=== PATIENT | female | born 1965 | race Caucasian/White ===

== ENCOUNTER 2018-05-29 06:25 | Inpatient (IN) | payer BC ==
[2018-05-26 11:19] LABS: BILIRUBIN,URINE NEGATIVE (NEGATIVE); BLOOD, URINE NEGATIVE (NEGATIVE); CLARITY/URINE CLEAR (CLEAR); COLOR,URINE YELLOW (YELLOW); GLUCOSE,URINE NEGATIVE (NEGATIVE); KETONES,URINE NEGATIVE (NEGATIVE); LEUKOCYTE ESTERASE ,URINE NEGATIVE (NEGATIVE); NITRITE, URINE NEGATIVE (NEGATIVE); PROTEIN URINE NEGATIVE (NEGATIVE); UROBILINOGEN,URINE 0.2 (0.2-1.0)
[2018-05-26 11:27] LABS: BASOPHILS # (AUTO) 0.1 K/uL (0.0-0.2); BASOPHILS % (AUTO) 0.6 % (0.0-2.0); EOSINOPHILS # (AUTO) 0.4 K/uL (0.0-0.4); EOSINOPHILS % (AUTO) 4.4 % (0.0-4.0); HEMOGLOBIN 14.7 g/dL (12.0-16.0); LYMPHOCYTES # (AUTO) 2.8 K/uL (1.0-5.5); LYMPHOCYTES % (AUTO) 32.5 % (20.5-51.5); MEAN CORPUSCULAR HEMOGLOBIN 32 pg (27-31); MEAN CORPUSCULAR HGB CONC 34 % (32-36); MEAN CORPUSCULAR VOLUME 93 fL (79.0-98.0); MONOCYTES # (AUTO) 0.5 K/uL (0.0-1.0); MONOCYTES % (AUTO) 5.2 % (1.7-9.3); NEUTROPHILS % (AUTO) 57.3 % (40.0-70.0); PLATELET COUNT (AUTO) 304 K/uL (130-430); RED BLOOD CELL COUNT(AUTO) 4.65 MIL/uL (4.2-6.2); RED CELL DISTRIBUTION WIDTH 12.8 % (9.0-15.0); WHITE BLOOD COUNT (AUTO) 8.8 K/uL (4.8-10.8)
[2018-05-26 11:28] LABS: CALCIUM 9.6 mg/dL (8.4-11.0); CREATININE 0.72 mg/dL (0.55-1.30); POTASSIUM 3.9 mmol/L (3.5-5.1)
[~2018-05-29] VITALS: Ht 162.6 cm; Wt 93.4 kg
[2018-05-29] MEDS ORDERED: CEFAZOLIN SOD 1 GM/ ISO 50 ML PREMIX IV ONE (07:00)
[2018-05-29] MEDS ORDERED: PREG75CA PO (07:49)
[2018-05-29] MEDS ORDERED: LEVO25TA7 PO (08:08)
[2018-05-29] MEDS ORDERED: AMLO5TAB4 PO (08:08)
[2018-05-29] MEDS ORDERED: OXYC-158 PO (08:08)
[2018-05-29] MEDS ORDERED: MELO15TA13 PO (08:08)
[2018-05-29] MEDS ORDERED: LAM250 GT (08:08)
[2018-05-29] MEDS ORDERED: LOSA100T3 PO (08:08)
[2018-05-29] MEDS ORDERED: fentaNYL CITRATE 250 MCG/5 ML AMP IV ONE (08:30)
[2018-05-29] MEDS ORDERED: SUCCINYLCHOLINE CHLORIDE 20 MG/ML(QUELICIN) IVP ONE (08:30)
[2018-05-29] MEDS ORDERED: LR 1,000 ML IV.SOLN IV ONE (08:30)
[2018-05-29] MEDS ORDERED: MIDAZOLAM HCL 5 MG/5 ML VIAL IVP ONE (08:30)
[2018-05-29] MEDS ORDERED: SUGAMMADEX SODIUM 200 MG/2 ML VIAL IV ONE (08:30)
[2018-05-29] MEDS ORDERED: fentaNYL CITRATE/PF 100 MCG/2 ML AMP IVP ONE (08:30)
[2018-05-29] MEDS ORDERED: PROPOFOL 200MG/ 20ML VIAL (DIPRIVAN) IV ONE (08:30)
[2018-05-29] MEDS ORDERED: NS 1000 ML IV.SOLN IV ONE (08:30)
[2018-05-29] MEDS ORDERED: SEVOFLURANE 15 MIN GAS INH ONE (08:30)
[2018-05-29] MEDS ORDERED: ONDANSETRON HCL 4 MG/2 ML VIAL IVP ONE (08:30)
[2018-05-29] MEDS ORDERED: LR 1,000 ML IV SCH (09:55)
[2018-05-29] MEDS ORDERED: METOCLOPRAMIDE HCL 10 MG/2 ML VIAL IVP PRN (10:00)
[2018-05-29] MEDS ORDERED: HYDROmorphone 1 MG INJ. 1 MG/ML AMPUL IVP PRN ×2 (10:00)
[2018-05-29] MEDS ORDERED: HYDROmorphone 2 MG/ML VIAL IVP PRN (10:00)
[2018-05-29] MEDS ORDERED: ONDANSETRON HCL 4 MG/2 ML VIAL IVP PRN (10:30)
[2018-05-29] MEDS ORDERED: IBUPROFEN 800 MG TABLET PO PRN ×2 (10:30)
[2018-05-29] MEDS ORDERED: OXYCODONE/ACETAMINOPHEN 5-325 TABLET PO PRN ×3 (10:30)
[2018-05-29] MEDS: LR 1,000 ML IV SCH ×2 (10:31→17:57)
[2018-05-29] MEDS ORDERED: HYDROmorphone 2 MG/ML VIAL ONE ×2 (10:32→10:46)
[2018-05-29 11:30] VITALS: BP_SYST 178
[2018-05-29] MEDS: OXYCODONE/ACETAMINOPHEN 5-325 TABLET PO PRN ×2 (11:47→20:48)
[2018-05-29] MEDS ORDERED: PROMETHAZINE HCL 25 MG/ML AMP IM PRN (15:45)
[2018-05-29] MEDS ORDERED: MEPERIDINE HCL/PF 50 MG/ML AMP IM PRN (15:45)
[2018-05-29 15:56] VITALS: BP_SYST 149
[2018-05-29 20:45] VITALS: BP_SYST 122
[2018-05-29] MEDS: PREGABALIN 75 MG CAPSULE (LYRICA) PO SCH (20:45)
[2018-05-29] MEDS ORDERED: SENNOSIDES/DOCUSATE SODIUM 1 TAB TABLET(SENOKOT-S) PO PRN ×2 (21:00)
[2018-05-29] MEDS ORDERED: TEMAZEPAM 15 MG CAPSULE PO PRN (21:00)
[2018-05-29 23:00] VITALS: BP_SYST 122
[2018-05-30] MEDS: LR 1,000 ML IV SCH (01:23)
[2018-05-30] MEDS: SIMETHICONE 80 MG TAB.CHEW PO PRN ×2 (02:50→08:36)
[2018-05-30] MEDS ORDERED: LEVOTHYROXINE SODIUM 0.025 MG TABLET PO SCH (07:00)
[2018-05-30] MEDS: OXYCODONE/ACETAMINOPHEN 5-325 TABLET PO PRN (07:58)
[2018-05-30 08:00] VITALS: BP_SYST 130
[2018-05-30] MEDS: PREGABALIN 75 MG CAPSULE (LYRICA) PO SCH (08:37)
[2018-05-30 08:57] LABS: HEMATOCRIT 28.5 % (36-48); HEMOGLOBIN 9.3 g/dL (12.0-16.0)
[2018-05-30] MEDS ORDERED: LOSARTAN POTASSIUM 50 MG TABLET (COZAAR) PO SCH (09:00)
[2018-05-30] MEDS ORDERED: amLODIPine BESYLATE 5 MG TABLET PO SCH (09:00)
[2018-05-30 11:17] VITALS: BP_SYST 117
[2018-05-30 11:55] VITALS: BP_SYST 108
== END 2018-05-30 14:49 | disposition home or self-care (01) | DRG 743 ==
LOC: SDS 06:25 → SMU 06:26 → SDS 11:25
PROVIDERS: ADMIT Obstetrics & Gynecology; ATTEND Obstetrics & Gynecology
PROC: 0UT20ZZ Resection of Bilateral Ovaries, Open Approach (ICD-10-PCS; 2018-05-29)
PROC: 0UDB8ZZ Extraction of Endometrium, Via Natural or Artificial Opening Endoscopic (ICD-10-PCS; 2018-05-29)
PROC: 0UT70ZZ Resection of Bilateral Fallopian Tubes, Open Approach (ICD-10-PCS; principal; 2018-05-29 07:30)
DX: N83.8 Other noninflammatory disorders of ovary, fallopian tube and broad ligament (principal); I10 Essential (primary) hypertension; N83.202 Unspecified ovarian cyst, left side; M19.90 Unspecified osteoarthritis, unspecified site; M79.7 Fibromyalgia; Z87.81 Personal history of (healed) traumatic fracture; Z87.891 Personal history of nicotine dependence; Z79.899 Other long term (current) drug therapy; Z82.49 Family history of ischemic heart disease and other diseases of the circulatory system; Z82.61 Family history of arthritis; Z83.3 Family history of diabetes mellitus; Z83.49 Family history of other endocrine, nutritional and metabolic diseases
CPT/HCPCS: 36415; 80048; 81003; 84703; 85018-TC; 85025; 86886; 86900; 86901; 87081; 88304; 88305; C9399; J0330; J0690; J1170; J2175; J2250; J2405; J2550; J2704; J3010; J7030; J7120

== ENCOUNTER 2018-06-02 13:38 | Inpatient (IN) | payer BC ==
[~2018-06-02] VITALS: Ht 162.6 cm; Wt 96.2 kg
[~2018-06-02 13:38] MED LIST: AMLO5TAB4 PO; LAM250 GT; LEVO25TA7 PO; LOSA100T3 PO; MELO15TA13 PO; OXYC-158 PO; PREG75CA PO
[2018-06-02 13:44] VITALS: BP_SYST 152
[2018-06-02 14:56] LABS: BASOPHILS % (AUTO) 0.3 % (0.0-2.0); EOSINOPHILS # (AUTO) 0.4 K/uL (0.0-0.4); EOSINOPHILS % (AUTO) 4.3 % (0.0-4.0); HEMATOCRIT 23.2 % (36-48); LYMPHOCYTES # (AUTO) 2.2 K/uL (1.0-5.5); LYMPHOCYTES % (AUTO) 23.5 % (20.5-51.5); MEAN CORPUSCULAR HEMOGLOBIN 31 pg (27-31); MEAN CORPUSCULAR HGB CONC 33 % (32-36); MEAN CORPUSCULAR VOLUME 96 fL (79.0-98.0); MONOCYTES # (AUTO) 0.7 K/uL (0.0-1.0); MONOCYTES % (AUTO) 7.2 % (1.7-9.3); NEUTROPHILS # (AUTO) 6.1 K/uL (1.8-7.7); NEUTROPHILS % (AUTO) 64.7 % (40.0-70.0); PLATELET COUNT (AUTO) 325 K/uL (130-430); RED BLOOD CELL COUNT(AUTO) 2.42 MIL/uL (4.2-6.2); RED CELL DISTRIBUTION WIDTH 12.4 % (9.0-15.0); WHITE BLOOD COUNT (AUTO) 9.4 K/uL (4.8-10.8)
[2018-06-02] MEDS ORDERED: MORPHINE 2 MG/ML INJ. SYRINGE IVP ONE (15:00)
[2018-06-02 15:01] LABS: HEMOGLOBIN 7.6 g/dL (12.0-16.0)
[2018-06-02 15:04] LABS: CALCIUM 9.1 mg/dL (8.4-11.0); CREATININE 0.73 mg/dL (0.55-1.30); POTASSIUM 3.4 mmol/L (3.5-5.1)
[2018-06-02 15:07] LABS: INR 0.9 (0.8-1.2); PROTHROMBIN TIME 9.6 SECS (9.5-12.5)
[2018-06-02 15:08] LABS: ALBUMIN 3.1 g/dL (3.4-4.8); TOTAL BILIRUBIN 0.7 mg/dL (0.0-1.0)
[2018-06-02] MEDS ORDERED: IOHEXOL 100 ML IV ONE (15:23)
[2018-06-02 15:25] LABS: BILIRUBIN,URINE NEGATIVE (NEGATIVE); BLOOD, URINE TRACE (NEGATIVE); CLARITY/URINE CLEAR (CLEAR); COLOR,URINE YELLOW (YELLOW); GLUCOSE,URINE NEGATIVE (NEGATIVE); KETONES,URINE NEGATIVE (NEGATIVE); LEUKOCYTE ESTERASE ,URINE NEGATIVE (NEGATIVE); NITRITE, URINE NEGATIVE (NEGATIVE); PH,URINE 7.5 (5.0-8.0); PROTEIN URINE NEGATIVE (NEGATIVE); UROBILINOGEN,URINE 0.2 (0.2-1.0)
[2018-06-02 15:29] LABS: BACTERIA,URINE FEW /HPF (None Seen); RBC,URINE 0-3 /HPF (0-3); WBC,URINE 0-3 /HPF (0-3)
[2018-06-02] MEDS ORDERED: PREG20SO PO (17:05)
[2018-06-02] MEDS ORDERED: TIMO5DRO35 OP (17:05)
[2018-06-02] MEDS ORDERED: LATA2.5D2 OP (17:05)
[2018-06-02] MEDS ORDERED: NACL 0.9% 1,000 ML IV ONE (17:45)
[2018-06-02 18:07] VITALS: BP_SYST 157
[2018-06-02 19:15] VITALS: BP_SYST 129
[2018-06-02] MEDS: MORPHINE 2 MG/ML INJ. SYRINGE IVP PRN ×2 (19:27→23:16)
[2018-06-02] MEDS ORDERED: MORPHINE 2 MG/ML INJ. SYRINGE ONE (19:29)
[2018-06-03] MEDS ORDERED: MORPHINE 2 MG/ML INJ. SYRINGE IVP PRN (03:00)
[2018-06-03] MEDS ORDERED: ALBUTEROL SULFATE 0.083% 2.5 MG/3 ML VIAL.NEB INH PRN (03:00)
[2018-06-03] MEDS ORDERED: cefTRIAXone 1 GM IVPB PREMIX 50 ML IV ONE (03:22)
[2018-06-03] MEDS ORDERED: cefTRIAXone 1 GM IVPB PREMIX 50 ML IV SCH (04:00)
[2018-06-03 04:17] VITALS: BP_SYST 116
[2018-06-03 05:20] VITALS: BP_SYST 116
[2018-06-03 08:00] VITALS: BP_SYST 134
[2018-06-03 08:22] LABS: CALCIUM 8.7 mg/dL (8.4-11.0); CREATININE 0.59 mg/dL (0.55-1.30); POTASSIUM 3.3 mmol/L (3.5-5.1); TOTAL BILIRUBIN 0.8 mg/dL (0.0-1.0)
[2018-06-03 08:33] LABS: BASOPHILS % (AUTO) 0.4 % (0.0-2.0); EOSINOPHILS # (AUTO) 0.4 K/uL (0.0-0.4); HEMATOCRIT 26.4 % (36-48); HEMOGLOBIN 8.7 g/dL (12.0-16.0); LYMPHOCYTES # (AUTO) 2.2 K/uL (1.0-5.5); LYMPHOCYTES % (AUTO) 25.3 % (20.5-51.5); MEAN CORPUSCULAR HEMOGLOBIN 31 pg (27-31); MEAN CORPUSCULAR HGB CONC 33 % (32-36); MEAN CORPUSCULAR VOLUME 95 fL (79.0-98.0); MONOCYTES # (AUTO) 0.7 K/uL (0.0-1.0); MONOCYTES % (AUTO) 7.8 % (1.7-9.3); NEUTROPHILS # (AUTO) 5.4 K/uL (1.8-7.7); NEUTROPHILS % (AUTO) 61.5 % (40.0-70.0); PLATELET COUNT (AUTO) 318 K/uL (130-430); RED BLOOD CELL COUNT(AUTO) 2.78 MIL/uL (4.2-6.2); RED CELL DISTRIBUTION WIDTH 13.4 % (9.0-15.0); WHITE BLOOD COUNT (AUTO) 8.7 K/uL (4.8-10.8)
[2018-06-03] MEDS ORDERED: amLODIPine BESYLATE 5 MG TABLET PO SCH ×2 (09:00→10:34)
[2018-06-03] MEDS ORDERED: PANTOPRAZOLE SODIUM 40 MG/VIAL (PROTONIX) IVP SCH (09:00)
[2018-06-03] MEDS ORDERED: LEVOTHYROXINE SODIUM 0.025 MG TABLET PO SCH (09:00)
[2018-06-03] MEDS: LATANOPROST 2.5 ML DROPS (XALATAN) OP SCH ×2 (09:00→21:54)
[2018-06-03] MEDS: PREGABALIN 75 MG CAPSULE (LYRICA) PO SCH ×2 (10:15→21:53)
[2018-06-03] MEDS: LOSARTAN POTASSIUM 50 MG TABLET (COZAAR) PO SCH (10:15)
[2018-06-03] MEDS: PANTOPRAZOLE SODIUM 40 MG/VIAL (PROTONIX) IVP SCH (10:16)
[2018-06-03] MEDS: TERbinafine HCL 250 MG TABLET(LamISIL) GT SCH (10:17)
[2018-06-03] MEDS ORDERED: COMMUNICATION ORDER XX ONE (10:30)
[2018-06-03 11:31] VITALS: BP_SYST 137
[2018-06-03 15:30] VITALS: BP_SYST 133
[2018-06-03 19:20] VITALS: BP_SYST 153
[2018-06-03] MEDS: POLYETHYLENE GLYCOL 3350, 17 GM/ POWD.PACK PO SCH (19:42)
[2018-06-03] MEDS: ONDANSETRON HCL 4 MG/2 ML VIAL IVP PRN (21:54)
[2018-06-03] MEDS ORDERED: BISACODYL 10 MG/SUPPOSITORY RC PRN (22:30)
[2018-06-04 00:37] VITALS: BP_SYST 126
[2018-06-04] MEDS: ONDANSETRON HCL 4 MG/2 ML VIAL IVP PRN (06:14)
[2018-06-04] MEDS ORDERED: LEVOTHYROXINE SODIUM 0.025 MG TABLET PO SCH (07:00)
[2018-06-04] MEDS ORDERED: NA PHOS,M-B/NA PHOS,DI-BA 118 ML (FLEET ENEMA) RC ONE ×3 (07:00→09:45)
[2018-06-04 07:09] LABS: BASOPHILS % (AUTO) 0.2 % (0.0-2.0); EOSINOPHILS # (AUTO) 0.3 K/uL (0.0-0.4); EOSINOPHILS % (AUTO) 3.3 % (0.0-4.0); HEMATOCRIT 28.8 % (36-48); HEMOGLOBIN 9.9 g/dL (12.0-16.0); LYMPHOCYTES # (AUTO) 1.9 K/uL (1.0-5.5); LYMPHOCYTES % (AUTO) 18.6 % (20.5-51.5); MEAN CORPUSCULAR HEMOGLOBIN 32 pg (27-31); MEAN CORPUSCULAR HGB CONC 34 % (32-36); MEAN CORPUSCULAR VOLUME 94 fL (79.0-98.0); MONOCYTES # (AUTO) 0.8 K/uL (0.0-1.0); MONOCYTES % (AUTO) 8.2 % (1.7-9.3); NEUTROPHILS # (AUTO) 7.2 K/uL (1.8-7.7); NEUTROPHILS % (AUTO) 69.7 % (40.0-70.0); PLATELET COUNT (AUTO) 379 K/uL (130-430); RED BLOOD CELL COUNT(AUTO) 3.05 MIL/uL (4.2-6.2); RED CELL DISTRIBUTION WIDTH 13.3 % (9.0-15.0); WHITE BLOOD COUNT (AUTO) 10.3 K/uL (4.8-10.8)
[2018-06-04 07:57] LABS: ALBUMIN 3.3 g/dL (3.4-4.8); CALCIUM 9.3 mg/dL (8.4-11.0); CREATININE 0.77 mg/dL (0.55-1.30); POTASSIUM 3.5 mmol/L (3.5-5.1); TOTAL BILIRUBIN 1.4 mg/dL (0.0-1.0)
[2018-06-04 08:00] VITALS: BP_SYST 124
[2018-06-04] MEDS ORDERED: cefTRIAXone 1 GM IVPB PREMIX 50 ML IV SCH (09:00)
[2018-06-04] MEDS: PANTOPRAZOLE SODIUM 40 MG/VIAL (PROTONIX) IVP SCH (10:07)
[2018-06-04] MEDS: LATANOPROST 2.5 ML DROPS (XALATAN) OP SCH (10:07)
[2018-06-04] MEDS: POLYETHYLENE GLYCOL 3350, 17 GM/ POWD.PACK PO SCH (10:07)
[2018-06-04] MEDS: TERbinafine HCL 250 MG TABLET(LamISIL) GT SCH (10:08)
[2018-06-04] MEDS: PREGABALIN 75 MG CAPSULE (LYRICA) PO SCH (10:09)
[2018-06-04] MEDS: LOSARTAN POTASSIUM 50 MG TABLET (COZAAR) PO SCH (10:09)
[2018-06-04 12:00] VITALS: BP_SYST 135
[2018-06-04] MEDS ORDERED: LACTULOSE 20 GM/30 ML UDC PO ONE (12:00)
[2018-06-04] MEDS ORDERED: LACTULOSE 20 GM/30 ML UDC ONE (12:13)
[2018-06-04 13:58] VITALS: BP_SYST 135
== END 2018-06-04 14:50 | disposition home or self-care (01) | DRG 605 ==
LOC: SED 13:38 → STU 17:32
PROVIDERS: ADMIT Internal Medicine; ATTEND Internal Medicine
PROC: 30233N1 Transfusion of Nonautologous Red Blood Cells into Peripheral Vein, Percutaneous Approach (ICD-10-PCS; principal; 2018-06-02)
DX: S30.1XXA Contusion of abdominal wall, initial encounter (principal); K92.1 Melena; E03.9 Hypothyroidism, unspecified; G62.9 Polyneuropathy, unspecified; I10 Essential (primary) hypertension; D64.9 Anemia, unspecified; K59.03 Drug induced constipation; T40.605A Adverse effect of unspecified narcotics, initial encounter; Z90.710 Acquired absence of both cervix and uterus; Z98.51 Tubal ligation status; Y92.89 Other specified places as the place of occurrence of the external cause; Z82.49 Family history of ischemic heart disease and other diseases of the circulatory system; Z79.899 Other long term (current) drug therapy; Z90.79 Acquired absence of other genital organ(s); Z90.722 Acquired absence of ovaries, bilateral
CPT/HCPCS: 36415; 80053; 81000-TC; 82150-TC; 82272; 83690-TC; 84703; 85025; 85610-TC; 85730-TC; 86886; 86900; 86901; 86920; 87081; 93005; 96374; 99285; C9113; J0696; J2270; J2405; J7030; P9021; Q9967

== ENCOUNTER 2023-09-22 14:43 | Emergency (ER) | payer BC ==
[~2023-09-22] VITALS: Ht 162.6 cm; Wt 102.1 kg
[~2023-09-22 14:43] MED LIST changes: -LAM250 GT; +LATA2.5D14 OP; +LOSA-415 PO; -LOSA100T3 PO; +PREG20SO PO; +TERB250T90 GT; +TIMO5DRO35 OP
[2023-09-22 14:45] VITALS: BP_SYST 131; PULSE 89; RESP 18; TEMP 97.2; O2SAT 97
[2023-09-22 15:48] LABS: BILIRUBIN,URINE NEGATIVE (NEGATIVE); BLOOD, URINE 1+ (NEGATIVE); CLARITY/URINE CLEAR (CLEAR); COLOR,URINE YELLOW (YELLOW); GLUCOSE,URINE NEGATIVE (NEGATIVE); KETONES,URINE TRACE (NEGATIVE); LEUKOCYTE ESTERASE ,URINE NEGATIVE (NEGATIVE); NITRITE, URINE NEGATIVE (NEGATIVE); PROTEIN URINE NEGATIVE (NEGATIVE); UROBILINOGEN,URINE 0.2 (0.2-1.0)
[2023-09-22 16:03] LABS: BASOPHILS # (AUTO) 0.1 K/uL (0.0-0.2); BASOPHILS % (AUTO) 0.5 % (0.0-2.0); EOSINOPHILS # (AUTO) 0.3 K/uL (0.0-0.4); EOSINOPHILS % (AUTO) 2.7 % (0.0-4.0); HEMATOCRIT 43.6 % (36-48); LYMPHOCYTES # (AUTO) 3.1 K/uL (1.0-5.5); LYMPHOCYTES % (AUTO) 23.9 % (20.5-51.5); MEAN CORPUSCULAR HEMOGLOBIN 33 pg (27-31); MEAN CORPUSCULAR HGB CONC 34 % (32-36); MEAN CORPUSCULAR VOLUME 95 fL (79.0-98.0); MONOCYTES # (AUTO) 0.8 K/uL (0.0-1.0); MONOCYTES % (AUTO) 6.2 % (1.7-9.3); NEUTROPHILS # (AUTO) 8.5 K/uL (1.8-7.7); NEUTROPHILS % (AUTO) 66.7 % (40.0-70.0); PLATELET COUNT (AUTO) 322 K/uL (130-430); RED BLOOD CELL COUNT(AUTO) 4.59 MIL/uL (4.2-6.2); RED CELL DISTRIBUTION WIDTH 13.8 % (9.0-15.0); WHITE BLOOD COUNT (AUTO) 12.8 K/uL (4.8-10.8)
[2023-09-22 16:11] LABS: BACTERIA,URINE None Seen /HPF (None Seen); RBC,URINE 0-3 /HPF (0-3); WBC,URINE 0-3 /HPF (0-3)
[2023-09-22 16:13] LABS: CALCIUM 9.6 mg/dL (8.4-11.0); CREATININE 0.95 mg/dL (0.55-1.30); POTASSIUM 3.9 mmol/L (3.5-5.1)
[2023-09-22 16:18] LABS: ALBUMIN 3.5 g/dL (3.4-4.8); BILIRUBIN,DIRECT 0.1 mg/dL (0.0-0.3); TOTAL BILIRUBIN 0.2 mg/dL (0.0-1.0); TOTAL PROTEIN, SERUM 7.8 g/dL (6.4-8.3)
== END 2023-09-22 18:49 | disposition home or self-care (01) ==
LOC: SED 14:43
DX: R10.10 Upper abdominal pain, unspecified (principal); R11.0 Nausea; I10 Essential (primary) hypertension; Z79.899 Other long term (current) drug therapy
CPT/HCPCS: 36415; 76376; 80048; 80076; 81000; 81001; 81015; 83690; 85025; 99284